=== PATIENT | female | born 1990 | race Caucasian/White ===

== ENCOUNTER 2022-11-24 06:02 | Emergency (ER) | payer OTHER, MEDICAID ==
[~2022-11-24] VITALS: Ht 154.9 cm; Wt 81.6 kg
[2022-11-24 06:11] VITALS: BP_SYST 185; PULSE 65; RESP 25; TEMP 96; O2SAT 100
--- NOTE | 2022-11-24 06:18 | NUR ---
UPPER RESP DISTRESS, SCAR TISSUE IN THROAT FOLLOWING AN OLD INTUBATION, STIDOR NOTED , SATURATING 100% ON 2 LITERS NASAL CANNULA
--- NOTE | 2022-11-24 06:30 | NUR ---
FIRST CONTACT WITH PT. ASSESSMENT COMPLETED. AWAITING EVAL AND ORDERS.
[2022-11-24 06:53] LABS: BASOPHILS % (AUTO) 0.8 % (0.0-2.0); EOSINOPHILS # (AUTO) 0.1 K/uL (0.0-0.4); EOSINOPHILS % (AUTO) 2.5 % (0.0-4.0); HEMATOCRIT 30.5 % (36-48); HEMOGLOBIN 9.7 g/dL (12.0-16.0); LYMPHOCYTES # (AUTO) 1.4 K/uL (1.0-5.5); LYMPHOCYTES % (AUTO) 26.7 % (20.5-51.5); MEAN CORPUSCULAR HEMOGLOBIN 28 pg (27-31); MEAN CORPUSCULAR HGB CONC 32 % (32-36); MEAN CORPUSCULAR VOLUME 89 fL (79.0-98.0); MONOCYTES # (AUTO) 0.4 K/uL (0.0-1.0); MONOCYTES % (AUTO) 7.3 % (1.7-9.3); NEUTROPHILS # (AUTO) 3.4 K/uL (1.8-7.7); NEUTROPHILS % (AUTO) 62.7 % (40.0-70.0); PLATELET COUNT (AUTO) 138 K/uL (130-430); RED BLOOD CELL COUNT(AUTO) 3.41 MIL/uL (4.2-6.2); RED CELL DISTRIBUTION WIDTH 15.6 % (9.0-15.0); WHITE BLOOD COUNT (AUTO) 5.4 K/uL (4.8-10.8)
--- NOTE | 2022-11-24 06:55 | NUR ---
PT TO RADIOLOGY VIA [facility].
--- NOTE | 2022-11-24 07:10 | NUR ---
RECEIVED PATIENT & ASSUMED CARE. PATIENT STATES HER SOB HAS IMPROVED & IS CONCERNED ABOUT MISSING HER SCHEDULED 0945 HEMODIALYSIS CHAIR TIME. STATES IF SHE MISSES TODAY, SHE CANNOT GO AGAIN UNTIL THURSDAY, ESPECIALLY D/T November HOLIDAY, HD SCHEDULE IS FULLY BOOKED. MADE AWARE.
[2022-11-24 07:11] LABS: INR 1.1 (0.8-1.2); PROTHROMBIN TIME 11.1 SECS (9.5-12.5)
[2022-11-24 07:25] LABS: ALANINE AMINOTRANSFERASE 11 U/L (12-78); ALBUMIN 3.8 g/dL (3.4-4.8); ANION GAP 13 (5-15); ASPARTATE AMINOTRANSFERASE 8 U/L (10-37); CALCIUM 8.6 mg/dL (8.4-11.0); CHLORIDE 97 mmol/L (98-107); GFR AFRICAN AMERICAN 7 mL/min (>90); GLUCOSE 82 mg/dL (74-106); TOTAL BILIRUBIN 0.5 mg/dL (0.0-1.0); UREA NITROGEN, BLOOD 100 mg/dL (8-21)
[2022-11-24 07:27] LABS: CREATININE 8.93 mg/dL (0.55-1.30)
[2022-11-24 07:51] VITALS: BP_SYST 165; PULSE 73; RESP 20; TEMP 96.7; O2SAT 100
--- NOTE | 2022-11-24 07:51 | NUR ---
Patient given written and verbal discharge instructions and verbalizes understanding. ER MD HERNANDEZ discussed with patient the results and treatment provided. Patient in stable condition. ID arm band removed. Patient educated on pain management and to follow up with PMD. Pain Scale 0/10. Opportunity for questions provided and answered.
== END 2022-11-24 07:51 | disposition home or self-care (01) ==
LOC: SED 06:02
DX: N19 Unspecified kidney failure (principal); R06.02 Shortness of breath; E04.1 Nontoxic single thyroid nodule; Z88.1 Allergy status to other antibiotic agents; Z88.6 Allergy status to analgesic agent; Z79.899 Other long term (current) drug therapy
CPT/HCPCS: 36415; 70490; 71045; 76376; 80053; 82550; 83605; 83880; 84484; 84703; 85025; 85610-TC; 85730-TC; 93005; 99285